=== PATIENT | male | born 1980 | race American Indian/Alaskan Native ===

== ENCOUNTER 2022-01-03 15:14 | Emergency (ER) | payer OTHER ==
[2022-01-03 15:19] VITALS: BP 130/80
[2022-01-03] MEDS ORDERED: IBUPROFEN 600 MG TAB PO ONE (17:22)
[2022-01-03] MEDS ORDERED: HYDROcodone/ACETAMINOPHEN 5-325 MG TAB PO ONE (17:23)
[2022-01-03] MEDS ORDERED: ONDANSETRON 4 MG ODT TAB PO ONE (17:23)
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
[2022-01-03] MEDS ORDERED: NEOMY 3.5 MG/BACIT 400 UNITS/POLY B 5000 UNITS OINT 15 GM TP SCH (20:00)
== END 2022-01-03 19:55 | disposition home or self-care (01) ==
LOC: ED 15:14
DX: S60.511S Abrasion of right hand, sequela (principal); S80.212A Abrasion, left knee, initial encounter; S80.211A Abrasion, right knee, initial encounter; S60.512A Abrasion of left hand, initial encounter; S60.511A Abrasion of right hand, initial encounter; S60.812A Abrasion of left wrist, initial encounter; S60.811A Abrasion of right wrist, initial encounter; W18.39XA Other fall on same level, initial encounter; Y93.E5 Activity, floor mopping and cleaning; Y92.89 Other specified places as the place of occurrence of the external cause; Y99.8 Other external cause status
CPT/HCPCS: 99283; J3490; Q0162

== ENCOUNTER 2022-06-05 00:19 | Emergency (ER) | payer SELFPAY ==
[2022-06-05] MEDS ORDERED: SODIUM CHLORIDE 0.9% 1000 ML 1,000 ML IV ONE (03:05)
--- NOTE | 2022-06-05 03:13 | Emergency Department Report ---
History of Present Illness - General Chief Complaint: Overdose Stated Complaint: SOB 2ND DRUG INGESTION Time Seen by Provider: 06/05/22 03:05 Source: patient, EMS Mode of arrival: Stretcher Limitations: No Limitations - History of Present Illness Initial Comments: 41-year-old male brought in by EMS after an intentional overdose on ecstasy associated with agitation. According to the family member and the EMS patient was found walking back and forth on the street yelling and screaming. Patient reports that he took 4 tablets of ecstasy. Patient however denies any chest pain, shortness of breath or palpitation. No fever or chills reported. Patient was given Haldol 10 mg, Benadryl 50 mg and 2 mg of Ativan by EMS. No other modifying or associated factors reported. MD Complaint: intentional overdose - Related Data Previous Rx's Medication Instructions Recorded Last Taken Type Acetaminophen/Codeine [Tylenol 1 tab PO Q6H PRN #12 tab 01/03/22 Unknown Rx /Codeine # 3 tab] Ibuprofen [Motrin] 800 mg PO Q8HR PRN #30 tablet 01/03/22 Unknown Rx cephALEXin [Keflex] 500 mg PO Q6HR #30 capsule 01/03/22 Unknown Rx Allergies Allergy/AdvReac Type Severity Reaction Status Date / Time No Known Allergies Allergy Verified 01/03/22 15:19 ED Review of Systems ROS: Stated complaint: SOB 2ND DRUG INGESTION Other details as noted in HPI Comment: All other systems reviewed and negative Constitutional: other (Agitation) Respiratory: denies: shortness of breath Cardiovascular: denies: chest pain, palpitations Psychiatric: other (Agitation) ED Past Medical Hx - Medications Home Medications: Home Medications Medication Instructions Recorded Confirmed Last Taken Type Acetaminophen/Codeine [Tylenol 1 tab PO Q6H PRN #12 tab 01/03/22 Unknown Rx /Codeine # 3 tab] Ibuprofen [Motrin] 800 mg PO Q8HR PRN #30 tablet 01/03/22 Unknown Rx cephALEXin [Keflex] 500 mg PO Q6HR #30 capsule 01/03/22 Unknown Rx ED Physical Exam - General Limitations: No Limitations General appearance: alert, in no apparent distress - Head Head exam: Present: atraumatic, normal inspection - Eye Eye exam: Present: normal appearance Pupils: Present: normal accommodation - ENT ENT exam: Present: normal exam, normal orophraynx, mucous membranes dry - Neck Neck exam: Present: normal inspection, full ROM. Absent: tenderness - Respiratory Respiratory exam: Present: normal lung sounds bilaterally. Absent: respiratory distress, accessory muscle use - Cardiovascular Cardiovascular Exam: Present: regular rate, normal rhythm, normal heart sounds - GI/Abdominal GI/Abdominal exam: Present: soft, normal bowel sounds. Absent: distended, tenderness - Extremities Exam Extremities exam: Present: normal inspection, normal capillary refill. Absent: tenderness, pedal edema - Back Exam Back exam: Absent: tenderness - Neurological Exam Neurological exam: Present: alert, oriented X3 - Psychiatric Psychiatric exam: Present: normal affect, normal mood, agitated - Skin Skin exam: Present: warm, normal color ED Course Vital Signs 06/05/22 06/05/22 06/05/22 00:31 01:03 01:16 Temperature 98.2 F Pulse Rate 87 57 L Respiratory 16 9 L Rate Blood Pressure 111/60 148/73 Blood Pressure 128/67 [Right] O2 Sat by Pulse 99 99 Oximetry 06/05/22 06/05/22 06/05/22 01:30 01:46 02:00 Temperature Pulse Rate 65 71 Respiratory 16 16 Rate Blood Pressure 148/73 125/77 125/77 Blood Pressure [Right] O2 Sat by Pulse 98 98 100 Oximetry 06/05/22 06/05/22 06/05/22 02:16 02:30 02:32 Temperature Pulse Rate Respiratory Rate Blood Pressure 128/80 128/80 Blood Pressure [Right] O2 Sat by Pulse 97 99 98 Oximetry 06/05/22 06/05/22 06/05/22 02:46 03:00 03:16 Temperature Pulse Rate Respiratory Rate Blood Pressure 147/90 147/90 148/88 Blood Pressure [Right] O2 Sat by Pulse 100 98 98 Oximetry 06/05/22 03:30 Temperature Pulse Rate Respiratory Rate Blood Pressure 148/88 Blood Pressure [Right] O2 Sat by Pulse 100 Oximetry ED Medical Decision Making - Lab Data Result diagrams: 06/05/22 03:30 06/05/22 03:30 - EKG Data -: EKG Interpreted by Fl EKG shows normal: sinus rhythm Rate: bradycardia - EKG Data 06/05/22 05:37 Noted with sinus bradycardia at a rate of 53 bpm, left atrial enlargement with no ST elevation or depression in this borderline ECG. - Medical Decision Making Here with overdose on ecstasy x3 tablets--given Benadryl, Haldol, and Ativan with improvement in symptoms.--We will go ahead and get routine labs including CBC, CMP, urinalysis and drug screen In the meantime will go ahead and hydrate with ivf ns 1L bolus x 1-- Lab reviewed and noted UDS to be positive for amphetamine, THC, and benzo--likely contributed to patient's symptoms. Patient reassured and encouraged to avoid illicit drug use for his general health. Critical care attestation.: If time is entered above; I have spent that time in minutes in the direct care of this critically ill patient, excluding procedure time. ED Disposition Clinical Impression: Overdose of ecstasy, Amphetamine abuse, Marijuana abuse Disposition: HOME / SELF CARE / HOMELESS Is pt being admited?: No Does the pt Need Aspirin: No Condition: Stable Instructions: Intentional Drug Overdose, Substance Use Disorder, Supporting S omeone With Substance Use Disorder, Methamphetamines Use Disorder Additional Instructions: Avoid illicit drug use for your general health Increase your daily fluid to help your hydration Please do not hesitate to call or return to emergency if your symptoms worsen Referrals: [facility] [Referring] - 3-5 Days Time of Disposition: 05:40
[2022-06-05 03:58] LABS: Basophils % (Auto) 0.2 % (0.0-1.8); Eosinophils % (Auto) 0.1 % (0.0-4.3); Hematocrit 48.9 % (35.5-45.6); Hemoglobin 16.5 gm/dl (11.8-15.2); Lymphocytes # (Auto) 1.4 K/mm3 (1.2-5.4); Lymphocytes % (Auto) 11.2 % (13.4-35.0); Mean Corpuscular HGB Conc 34 % (32-34); Mean Corpuscular Volume 94 fl (84-94); Monocytes # (Auto) 1.1 K/mm3 (0.0-0.8); Monocytes % (Auto) 8.7 % (0.0-7.3); Platelet Count 196 K/mm3 (140-440); Red Cell Distribution Width 13.2 % (13.2-15.2)
[2022-06-05 04:05] LABS: INR 1.04 (0.87-1.13)
[2022-06-05 04:08] LABS: Cocaine Screen,Urine Negative; Methadone Screen,Urine Negative; Opiate Screen,Urine Negative
[2022-06-05 04:15] LABS: Alanine Aminotransferase 24 units/L (7-56); Albumin 4.8 g/dL (3.9-5); BUN/Creatinine Ratio 8; Blood Urea Nitrogen 10 mg/dL (9-20); Calcium 9.9 mg/dL (8.4-10.2); Hemolysis Index 10
[2022-06-05 04:29] LABS: Free T4 (Free Thyroxine) 1.39 ng/dL (0.76-1.46)
[2022-06-05 04:40] LABS: Amphetamine Screen,Urine Positive; Benzodiazepines Screen,Urine Positive; Cannabinoid Screen,Urine Positive
[2022-06-05 06:32] VITALS: BP 163/85
--- NOTE | 2022-06-05 09:35 | Electrocardiograph Report ---
[facility] Test Date: 2022-06-05 Test Time: 01:14:25 Pat Name: JARED ALLISON Department: Room: Gender: M Multimedia Artist: KOBY : 1980 Requested By: GLORY CUNNINGHAM Order Number: [id number] Reading MD: Arnaldo Denson Measurements Intervals [place] Rate: 53 P: 77 MS: 142 QRS: 41 QRSD: 72 T: 43 QT: 406 QTc: 385 Interpretive Statements Sinus bradycardia Probable left atrial enlargement No previous ECG available for comparison Electronically Signed On 06-05-2022 9:34:44 EDT by Arnaldo Denson
== END 2022-06-05 06:37 | disposition home or self-care (01) ==
LOC: ED 00:19
DX: T43.641A Poisoning by ecstasy, accidental (unintentional), initial encounter (principal); F15.10 Other stimulant abuse, uncomplicated; F12.10 Cannabis abuse, uncomplicated; Z79.899 Other long term (current) drug therapy; Y92.89 Other specified places as the place of occurrence of the external cause
CPT/HCPCS: 36415; 80053; 80307; 84439; 84443; 85025; 85610; 93005; 96360; 99284